=== PATIENT | female | born 1955 | race Asian ===

== ENCOUNTER 2016-10-25 06:40 | Emergency (ER) | payer OTHER ==
[~2016-10-25] VITALS: Ht 152.4 cm; Wt 42.6 kg
[~2016-10-25 06:40] MED LIST: BENTYL 10MG10 MG/CAP PO; FERROUS SU325 MG/TAB PO; GAS-X80 MG PO; MULTIPLE VITAMI1 CAP PO; PERCOCET 325 MG1 TA2 PO; SENNA8.6 MG PO; ZANTAC 7575 MG PO; ZOFRAN ODT4 MG PO
[2016-10-25 06:53] VITALS: TEMP 98.8
[2016-10-25] MEDS ORDERED: FENTANYL 12MCG TD (07:32)
[2016-10-25] MEDS ORDERED: TRANSDERM-0.5 MG/21 TD (07:32)
[2016-10-25 07:49] LABS: BASO % 0.6 % (0.0-2.0); EOS % 0.2 % (0-4.0); GRAN # 2.7 (1.4-6.5); GRAN % 42.4 % (42.2-75.2); HEMATOCRIT 26.5 % (37.0-47.0); HEMOGLOBIN 8.5 g/dl (12.5-16.0); LYMPH # 2.1 (1.2-3.4); LYMPH % 33.5 % (20.0-51.0); MEAN CELL VOLUME 88 fl (80.0-100.0); MEAN CORPUSCULAR HEMOGLOBIN 28 pg (27.0-31.0); MEAN CORPUSCULAR HGB CONC 32 g/dl (33.0-37.0); MEAN PLATELET VOLUME 9.7 fl (7.4-10.4); MONO # 1.3 (0.1-0.6); MONO % 21.2 % (1.7-9.3); PLATELET COUNT 193 K/mm3 (130-400); RED BLOOD COUNT 3.01 M/mm3 (4.10-5.30); REDCELL DISTRIBUTION WIDTH-CV 16.2 % (11.5-14.5); WHITE BLOOD COUNT 6.3 K/mm3 (4.8-10.8)
[2016-10-25 08:25] LABS: ADJUSTED CALCIUM 9.6 mg/dL (8.4-10.2); ALBUMIN 3.1 gm/dL (3.5-5.0); BILIRUBIN,TOTAL 1.7 mg/dL (0.0-1.0); CALCIUM 8.9 mg/dL (8.4-10.2); CREATININE, serum 0.46 mg/dL (0.52-1.25); POTASSIUM 3.7 mmol/L (3.4-5.0); TOTAL PROTEIN 6.6 gm/dL (6.4-8.2)
[2016-10-25 08:56] VITALS: BP 113/72; PULSE 91
[2016-10-25 09:48] LABS: ADD PATHOLOGY DIFF REVIEW NO
[2016-10-25 09:54] LABS: ANISOCYTOSIS 1+; BAND 20 % (0-10); HYPOCHROMIA 1+; MICROCYTOSIS 1+; NEUTROPHILS 34 % (42.0-75.2); PLATELET ESTIMATE NORMAL (NORMAL); TOTAL CELLS COUNTED 100
[2016-12-10] MEDS ORDERED: K-DUR20 MEQ PO (13:04)
[2016-12-10] MEDS ORDERED: ZANTAC 150MG T150 MG PO (13:05)
[2016-12-10] MEDS ORDERED: LASIX 20MG TABL20 MG PO (13:05)
[2016-12-10] MEDS ORDERED: CENTRUM SILVER1 TAB (13:07)
[2016-12-10] MEDS ORDERED: VITAMINC250CH PO (13:08)
[2016-12-10] MEDS ORDERED: MARINOL 2.5MG2.5 MG PO (13:16)
== END 2016-10-25 08:58 | disposition home or self-care (01) ==
LOC: COL.ER 06:40
PROVIDERS: Nurse Practitioner
DX: I95.1 Orthostatic hypotension (principal); D64.9 Anemia, unspecified; C18.9 Malignant neoplasm of colon, unspecified
CPT/HCPCS: J2405; J7030

== ENCOUNTER 2016-11-24 10:00 | Inpatient (IN) | payer OTHER ==
[2016-11-24] VITALS (603 sets, daily range): BP systolic 126–138; BP diastolic 87–94; PULSE 86–97; TEMP 98.1; O2SAT 92–100
[~2016-11-24] VITALS: Ht 152.4 cm; Wt 47.1 kg
[~2016-11-24 10:00] MED LIST changes: +FENTANYL 12MCG TD; +TRANSDERM-0.5 MG/21 TD
[2016-11-24] MEDS ORDERED: PREDNISONE 5MG5 MG PO (10:05)
[2016-11-24 10:51] LABS: MEAN CELL VOLUME 86 fl (80.0-100.0); MEAN CORPUSCULAR HGB CONC 33 g/dl (33.0-37.0); MEAN PLATELET VOLUME 9.3 fl (7.4-10.4); PLATELET COUNT 92 K/mm3 (130-400); RED BLOOD COUNT 3.21 M/mm3 (4.10-5.30); REDCELL DISTRIBUTION WIDTH-CV 18.4 % (11.5-14.5)
[2016-11-24 10:58] LABS: HEMATOCRIT 27.7 % (37.0-47.0); HEMOGLOBIN 9.1 g/dl (12.5-16.0); MEAN CORPUSCULAR HEMOGLOBIN 28 pg (27.0-31.0); WHITE BLOOD COUNT 24.2 K/mm3 (4.8-10.8)
[2016-11-24 10:59] LABS: ADD PATHOLOGY DIFF REVIEW NO
[2016-11-24 11:10] LABS: ADJUSTED CALCIUM 9.3 mg/dL (8.4-10.2); ALBUMIN 2.8 gm/dL (3.5-5.0); BILIRUBIN,TOTAL 3.3 mg/dL (0.0-1.0); CALCIUM 8.3 mg/dL (8.4-10.2); CREATININE, serum 0.49 mg/dL (0.52-1.25); POTASSIUM 3.2 mmol/L (3.4-5.0); TOTAL PROTEIN 6.3 gm/dL (6.4-8.2)
[2016-11-24 11:11] LABS: BAND 22 % (0-10); NEUTROPHILS 70 % (42.0-75.2); OVALOCYTES 1+; PLATELET ESTIMATE DECREASED (NORMAL); TOTAL CELLS COUNTED 100
[2016-11-24 12:33] LABS: INR 1.3 (0.8-3.0); PROTHROMBIN TIME 14.3 SECONDS (9.7-12.8)
[2016-11-24 12:36] LABS: PARTIAL THROMBOPLASTIN TIME 30.2 SECONDS (26.0-37.0)
[2016-11-24 13:00] LABS: B-TYPE NATRIURETIC PEPTIDE 705 pg/mL (0-125)
[2016-11-24 13:07] LABS: TROPONIN-I < 0.012 ng/mL (0.000-0.034)
[2016-11-24] MEDS ORDERED: FERROUS SU325 MG/TAB PO (17:26)
[2016-11-25] VITALS (528 sets, daily range): BP systolic 107–140; BP diastolic 67–89; PULSE 86–108; TEMP 97.7–99.4; O2SAT 93–100
[2016-11-25 06:46] LABS: MEAN CELL VOLUME 88 fl (80.0-100.0); MEAN CORPUSCULAR HGB CONC 32 g/dl (33.0-37.0); MEAN PLATELET VOLUME 9.8 fl (7.4-10.4); PLATELET COUNT 126 K/mm3 (130-400); RED BLOOD COUNT 3.29 M/mm3 (4.10-5.30); REDCELL DISTRIBUTION WIDTH-CV 18.8 % (11.5-14.5)
[2016-11-25 06:50] LABS: HEMOGLOBIN 9.2 g/dl (12.5-16.0); MEAN CORPUSCULAR HEMOGLOBIN 28 pg (27.0-31.0); WHITE BLOOD COUNT 27.4 K/mm3 (4.8-10.8)
[2016-11-25 06:51] LABS: ADD PATHOLOGY DIFF REVIEW NO
[2016-11-25 07:04] LABS: ALBUMIN 2.7 gm/dL (3.5-5.0); BILIRUBIN,TOTAL 2.5 mg/dL (0.0-1.0); CREATININE, serum 0.49 mg/dL (0.52-1.25); POTASSIUM 3.7 mmol/L (3.4-5.0); TOTAL PROTEIN 6.2 gm/dL (6.4-8.2)
[2016-11-25 08:00] LABS: BAND 17 % (0-10); METAMYELOCYTE 1 % (0-0); NEUTROPHILS 76 % (42.0-75.2); PLATELET ESTIMATE DECREASED (NORMAL); TOTAL CELLS COUNTED 100
[2016-11-25 08:01] LABS: TEAR DROP CELLS 1+
[2016-11-25 11:11] LABS: PH 5 (5-8); URINE APPEARANCE Hazy; URINE BACTERIA Rare /hpf; URINE BILIRUBIN Negative (NEGATIVE); URINE BLOOD Negative (NEGATIVE); URINE COLOR Amber; URINE GLUCOSE Negative (NEGATIVE); URINE KETONE Trace (NEGATIVE); URINE RBC 0-2 /hpf
[2016-11-26 02:35] VITALS: BP 147/95; PULSE 91; TEMP 98.1
[2016-11-26 07:37] LABS: CALCIUM 8.1 mg/dL (8.4-10.2); CREATININE, serum 0.46 mg/dL (0.52-1.25); POTASSIUM 3.1 mmol/L (3.4-5.0)
[2016-11-26 07:39] LABS: BASO % 0.1 % (0.0-2.0); GRAN # 16.9 (1.4-6.5); GRAN % 82.9 % (42.2-75.2); LYMPH # 2.3 (1.2-3.4); LYMPH % 11.2 % (20.0-51.0); MEAN CELL VOLUME 89 fl (80.0-100.0); MEAN CORPUSCULAR HGB CONC 32 g/dl (33.0-37.0); MEAN PLATELET VOLUME 9.8 fl (7.4-10.4); MONO % 4.7 % (1.7-9.3); PLATELET COUNT 116 K/mm3 (130-400); RED BLOOD COUNT 3.05 M/mm3 (4.10-5.30); REDCELL DISTRIBUTION WIDTH-CV 19.2 % (11.5-14.5)
[2016-11-26 07:53] VITALS: BP 122/71; PULSE 101; TEMP 98.6
[2016-11-26 08:29] LABS: HEMOGLOBIN 8.5 g/dl (12.5-16.0); MEAN CORPUSCULAR HEMOGLOBIN 28 pg (27.0-31.0); WHITE BLOOD COUNT 20.3 K/mm3 (4.8-10.8)
[2016-11-26 11:25] VITALS: BP 130/81; PULSE 102; TEMP 98.3
[2016-11-26 15:58] VITALS: BP 123/80; PULSE 95; TEMP 98.1
[2016-11-26 16:08] LABS: PLEURAL FLUID RIGHT SIDE
[2016-11-26 16:09] LABS: PLEURAL FLUID APPEARANCE HAZY; PLEURAL FLUID COLOR YELLOW
[2016-11-26 16:14] LABS: PLEURAL FLUID - PMN 40.1 % (0-25)
[2016-11-26 16:22] LABS: GLUCOSE,PLEURAL FLUID 167 mg/dL
[2016-11-26 19:24] VITALS: BP 129/83; PULSE 96; TEMP 97.9
[2016-11-26 22:55] VITALS: BP 157/94; PULSE 89; TEMP 98.3
[2016-11-27 03:11] VITALS: BP 138/87; PULSE 90; TEMP 97.8
[2016-11-27 07:35] VITALS: BP 136/81; PULSE 104; TEMP 98.4
[2016-11-27] MEDS ORDERED: ZITHROMAX500 M2 PO (09:55)
[2016-11-27] MEDS ORDERED: PREDNISONE 5MG5 MG PO (09:56)
[2016-11-27 10:02] LABS: CALCIUM 8.3 mg/dL (8.4-10.2); CREATININE, serum 0.5 mg/dL (0.52-1.25); POTASSIUM 3.5 mmol/L (3.4-5.0)
[2016-12-10] MEDS ORDERED: K-DUR20 MEQ PO (13:04)
[2016-12-10] MEDS ORDERED: ZANTAC 150MG T150 MG PO (13:05)
[2016-12-10] MEDS ORDERED: LASIX 20MG TABL20 MG PO (13:05)
[2016-12-10] MEDS ORDERED: CENTRUM SILVER1 TAB (13:07)
[2016-12-10] MEDS ORDERED: VITAMINC250CH PO (13:08)
[2016-12-10] MEDS ORDERED: MARINOL 2.5MG2.5 MG PO (13:16)
== END 2016-11-27 10:51 | disposition home or self-care (01) | DRG 375 ==
LOC: COL.ER 10:00 → MEDICAL 11:59 → IMCU 12:45 → MEDICAL 11-25 15:41
PROVIDERS: Emergency Medicine; Family Medicine; Nurse Practitioner Family
PROC: 0W993ZZ Drainage of Right Pleural Cavity, Percutaneous Approach (ICD-10-PCS; principal; 2016-11-24)
PROC: 0W993ZX Drainage of Right Pleural Cavity, Percutaneous Approach, Diagnostic (ICD-10-PCS; 2016-11-26)
DX: C18.2 Malignant neoplasm of ascending colon (principal); J91.0 Malignant pleural effusion; E87.1 Hypo-osmolality and hyponatremia; C78.02 Secondary malignant neoplasm of left lung; C78.7 Secondary malignant neoplasm of liver and intrahepatic bile duct; Z87.891 Personal history of nicotine dependence; E87.6 Hypokalemia
CPT/HCPCS: 99223-AI; 99232-AI; 99239; J0456; J0692; J0696; J2405; J7030; J7050; J7512

== ENCOUNTER → 2016-11-30 | Outpatient (CLI) | payer OTHER ==
[~2016-11-30] VITALS: Ht 152.4 cm; Wt 48.5 kg
[~2016-11-30] MED LIST changes: +CENTRUM SILVER1 TAB; +K-DUR20 MEQ PO; +LASIX 20MG TABL20 MG PO; +MARINOL 2.5MG2.5 MG PO; +PREDNISONE 5MG5 MG PO; +VITAMINC250CH PO; +ZANTAC 150MG T150 MG PO; +ZITHROMAX500 M2 PO
[2016-11-30 12:56] VITALS: BP 109/75; PULSE 111
[2016-11-30 13:55] VITALS: BP 116/80; PULSE 108
== END ==
LOC: COL.RAD 12:27
DX: J90 Pleural effusion, not elsewhere classified (principal)
CPT/HCPCS: 19804

== ENCOUNTER → 2016-12-10 | Outpatient (CLI) | payer OTHER ==
[~2016-12-10] VITALS: Ht 152.4 cm; Wt 43.6 kg
[2016-12-10 13:11] VITALS: BP 117/83; PULSE 121
[2016-12-10 14:15] VITALS: BP 108/79; PULSE 122
== END ==
LOC: COL.RAD 12:29
DX: C78.01 Secondary malignant neoplasm of right lung (principal); R18.0 Malignant ascites
CPT/HCPCS: 19804